=== PATIENT | female | born 1985 | race Caucasian/White ===

== ENCOUNTER 2021-08-12 19:58 | Emergency (ER) | payer OTHER ==
[~2021-08-12] VITALS: Ht 177.8 cm; Wt 127.0 kg
[~2021-08-12 19:58] MED LIST: ACETAMINOPHEN-1 EAC1 PO; AMOXICILLIN875 MG PO
[2021-08-12 20:29] VITALS: BP 154/109
[2021-08-12] MEDS ORDERED: XANAX 0.5 MG0.5 M1 PO (20:32)
[2021-08-12] MEDS ORDERED: WELLBUTRIN 75 M75 M1 PO (20:33)
[2021-08-12] MEDS ORDERED: APAP W/CODEINE1 TA2 PO (21:20)
[2021-08-12] MEDS ORDERED: TESSALON PERLE100 MG PO (21:20)
== END 2021-08-12 22:07 | disposition home or self-care (01) ==
LOC: M.ERS 19:58
DX: U07.1 COVID-19 (principal); F17.210 Nicotine dependence, cigarettes, uncomplicated